=== PATIENT | female | born 1970 | race African-American/Black ===

== ENCOUNTER → 2019-06-27 | Outpatient (CLI) | payer OTHER ==
--- NOTE | 2019-06-27 12:36 | RAD ---
EXAM: Lumbar spine, 3 views. HISTORY: Pain. COMPARISON: None. FINDINGS: 3 views of the lumbar spine are obtained. There is no listhesis. The vertebral beard are normal in height and the disc spaces are preserved. There is facet arthropathy at the lumbosacral junction. IMPRESSION: Degenerative change at the lumbosacral junction. Electronically signed by: Lakisha Hinojosa MD (06/27/2019 12:34 PM) [facility]
== END | disposition home or self-care (01) ==
LOC: PMG 11:21
PROVIDERS: ATTEND Registered Nurse
DX: M47.817 Spondylosis without myelopathy or radiculopathy, lumbosacral region (principal)
CPT/HCPCS: 72100

== ENCOUNTER 2019-12-08 10:31 | Emergency (ER) | payer OTHER ==
[~2019-12-08] VITALS: Ht 167.6 cm; Wt 81.1 kg
[2019-12-08 10:40] VITALS: BP 134/91
--- NOTE | 2019-12-08 11:07 | PHYS DOC ---
Past History Past Medical History: AL Past Surgical History: Other Additional Past Surgical Histo: cardiac stent Additional Smoking Information: 1/4 pack/day Alcohol Use: None General Adult EDM: Chief Complaint: BACK PAIN OR INJURY HPI: HPI: 49 yo female presents with diffuse back pain after myelogram. She had a myelogram yesterday as follow-up from previous chronic back pain injury. They are referring her to pain management. She is not a surgical candidate. The patient has had increased pain since the test. She denies any new trauma or falls. She has no other complaints at this time. Review of Systems: Review of Systems: Constitutional: Denies fever or chills Eyes: Denies change in visual acuity HENT: Denies nasal congestion or sore throat Respiratory: Denies cough or shortness of breath Cardiovascular: Denies chest pain or edema GI: Denies abdominal pain, nausea, vomiting, bloody stools or diarrhea : Denies dysuria Musculoskeletal: Back pain Integument: Denies rash Neurologic: Denies headache, focal weakness or sensory changes Endocrine: Denies polyuria or polydipsia Lymphatic: Denies swollen glands Psychiatric: Denies depression or anxiety Heart Score: Risk Factors: Risk Factors: DM, Current or recent (<one month) smoker, HTN, HLP, family history of CAD, obesity. Risk Scores: Score 0 - 3: 2.5% MACE over next 6 weeks - Discharge Home Score 4 - 6: 20.3% MACE over next 6 weeks - Admit for Clinical Observation Score 7 - 10: 72.7% MACE over next 6 weeks - Early Invasive Strategies Allergies: Allergies: Allergies Coded Allergies Type Severity Reaction Last Updated Verified No Known Drug Allergies 12/08/19 No Physical Exam: PE: Constitutional: Well developed, well nourished, no acute distress, non-toxic appearance. [] HENT: Normocephalic, atraumatic, bilateral external ears normal, oropharynx moist, no oral exudates, nose normal. [] Eyes: PERRLA, EOMI, conjunctiva normal, no discharge. [] Neck: Normal range of motion, no tenderness, supple, no stridor. [] Cardiovascular:Heart rate regular rhythm, no murmur [] Lungs & Thorax: Bilateral breath sounds clear to auscultation [] Abdomen: Bowel sounds normal, soft, no tenderness, no masses, no pulsatile masses. [] Skin: Warm, dry, no erythema, no rash. [] Back: Thoracic paraspinal muscle spasm and tenderness. [] Extremities: No tenderness, no cyanosis, no clubbing, ROM intact, no edema. [] Neurologic: Alert and oriented X 3, normal motor function, normal sensory function, no focal deficits noted. [] Psychologic: Affect normal, judgement normal, mood normal. [] Current Patient Data: Vital Signs: Vital Signs Date Time Temp Pulse Resp B/P (MAP) Pulse Ox O2 Delivery O2 Flow Rate FiO2 12/08/19 10:40 98.3 80 20 134/91 (105) 99 Room Air EKG: EKG: [] Radiology/Procedures: Radiology/Procedures: [] Course & Med Decision Making: Course & Med Decision Making Pertinent Labs and Imaging studies reviewed. (See chart for details) Unsure what the patient's pain is due to the test yesterday or just an exacerbation of her chronic pain. She has not had any narcotic pain medication since July. I will give her a short course of [place] as well as Flexeril to get her through the next couple days to see if it calms down. She will follow- up with pain management on Tuesday. [] Gee Disclaimer: Gee Disclaimer: This electronic medical record was generated, in whole or in part, using a voice recognition dictation system. Departure Departure: Impression: Primary Impression: Back pain Qualified Codes: M54.6 - Pain in thoracic spine Disposition: HOME/RESIDENCE PRIOR TO ADM Condition: STABLE Referrals: [facility] (PCP) Patient Instructions: Back Pain, Adult, [id number] Scripts Hydrocodone Bit/Acetaminophen (NORCO 5-325 TABLET) 1 Each Tablet 1 TAB PO PRN Q6HRS PRN for PAIN, #14 TAB 0 Refills Prov: JESSICA ELY DO 12/08/19 Cyclobenzaprine Hcl (CYCLOBENZAPRINE HCL) 10 Mg Tablet 1 TAB PO TID PRN for MUSCLE SPASMS, #30 TAB Prov: JESSICA ELY DO 12/08/19 Justification of Admission: Justification of Admission: Justification of Admission Dx: N/A JESSICA ELY DO Dec 08, 2019 11:07
[2019-12-08] MEDS ORDERED: CYCL-331 PO (11:14)
[2019-12-08] MEDS ORDERED: HYDR-3165 PO (11:14)
== END 2019-12-08 11:22 | disposition home or self-care (01) ==
LOC: ER 10:31
DX: M54.6 Pain in thoracic spine (principal); G89.29 Other chronic pain; I25.2 Old myocardial infarction; F17.200 Nicotine dependence, unspecified, uncomplicated
CPT/HCPCS: 99283

== ENCOUNTER 2020-01-12 20:53 | Emergency (ER) | payer OTHER ==
[~2020-01-12] VITALS: Ht 167.6 cm; Wt 85.3 kg
[~2020-01-12 20:53] MED LIST: CYCL-331 PO; HYDR-3165 PO
[2020-01-12] MEDS ORDERED: DEXAMETHASONE SOD PHOS 10 MG/ML VIAL. ONE (21:52)
[2020-01-12] MEDS ORDERED: KETOROLAC 30 MG/ML VIAL. ONE (21:53)
[2020-01-12] MEDS ORDERED: GABA-586 PO (21:56)
[2020-01-12] MEDS ORDERED: PRED50TA PO (21:56)
[2020-01-12] MEDS ORDERED: METH-38 PO (21:56)
--- NOTE | 2020-01-12 21:56 | PHYS DOC ---
Past History Past Medical History: [place], Other Additional Past Medical Histor: CHRONIC RIGHT HIP Past Surgical History: Other Additional Past Surgical Histo: cardiac stent Additional Smoking Information: 1/4 PACK Alcohol Use: None Adult General Chief Complaint Chief Complaint: BACK PAIN OR INJURY HPI HPI Patient is a 49 year old female who presents with lower back pain that radiates into her right hip and anterior thigh. She has had this for the last year after a injury at work. She is seeing a workman comp doctor for it previously but has not followed up recently for this. She has been taking [id number] medication without any relief. She continues to have significant amounts of pain. She gets intermittent numbness in her leg but does not have any numbness at this time. She is walking normally. She has not had any bowel or bladder incontinence. Review of Systems Review of Systems General: Denies fever, chills, sweats, fatigue Eyes: Denies drainage, blurred vision, eye redness HENT: Denies rhinorrhea, sore throat, earache Respiratory: Denies cough, shortness of breath, wheezing Cardiac: Denies edema, palpitations, chest pain GI: Denies abdominal pain, Nausea, vomiting MSK: Denies, neck pain reports back pain Skin: Denies rash, jaundice Neuro: Denies headache, dizziness Psychiatric: Denies SI/HI Allergies Allergies Allergies Coded Allergies Type Severity Reaction Last Updated Verified No Known Drug Allergies 12/08/19 No Physical Exam Physical Exam General: Awake, alert, NAD. Well Nourished, well hydrated. Cooperative HEENT: Atraumatic, EOMI, PERRL, airway patent, moist oral mucosa Neck: Supple, trachea midline Respiratory: CTA bilaterally, normal effort, no wheezing/crackles CV: RRR, no murmur, cap refill <2 GI: Soft, nondistended, nontender, no masses MSK: No obvious deformities Skin: Warm, dry, intact Neuro: A&O x3, speech NL, sensory and motor grossly intact, no focal deficits, normal gait Psych: Normal affect, normal mood, not suicidal or homicidal Current Patient Data Vital Signs Vital Signs Date Time Temp Pulse Resp B/P (MAP) Pulse Ox O2 Delivery O2 Flow Rate FiO2 01/12/20 20:55 98.3 93 20 140/89 (106) 96 Room Air EKG EKG [] Radiology/Procedures Radiology/Procedures [] Course & Med Decision Making Course & Med Decision Making Pertinent Labs and Imaging studies reviewed. (See chart for details) Patient is a 49-year-old female who presents to the Emergency room with non- traumatic back pain. Patient denies bowel incontinence, urinary retention, fever, numbness, weakness. On exam, patient does not have a neurologic deficits, saddle anesthesia, gait difficulty, signs of trauma, or wounds near area of pain. Patient does not have a history of cancer or prolonged steroid use. At this time, patient does not have any signs, symptoms, or risk factors of emergent causes of back pain making cauda equina, spinal abscess, transverse myelitis, fractures, and other causes of emergent back pain highly unlikely. At this time, patient does not need any further work up for their back pain and will be treated symptomatically. Patient's test results and vitals while in the ED were fully reviewed and discussed with the patient. Patient is stable and at this time does not need admission to the hospital. We have discussed strict return precautions and the importance of following up with their Primary Care Physician. Patient stated understanding and was given an opportunity to ask any questions. Patient is in agreement with plan. Dragon Disclaimer Dragon Disclaimer This electronic medical record was generated, in whole or in part, using a voice recognition dictation system. Departure Departure: Impression: Primary Impression: Sciatica Disposition: 01 HOME/RESIDENCE PRIOR TO ADM Condition: STABLE Referrals: EDDA JACKSON MD (PCP) Patient Instructions: Sciatica Scripts Prednisone (PREDNISONE) 50 Mg Tablet 1 TAB PO DAILY for inflammation, #5 TAB You received this medication in the emergency room today. You will starting your next dose tomorrow. Prov: ERICK STEVENS MD 01/12/20 Gabapentin (GABAPENTIN ) 300 Mg Capsule 300 MG PO TID for NEUROGENIC PAIN for 20 Days, #60 CAP Prov: ERICK STEVENS MD 01/12/20 Methocarbamol (ROBAXIN-750) 750 Mg Tablet 1 TAB PO TID PRN for BREAKTHROUGH PAIN for 30 Days, #45 TAB 0 Refills Prov: ERICK STEVENS MD 01/12/20 Justification of Admission: Justification of Admission: Justification of Admission Dx: No ERICK STEVENS MD Jan 12, 2020 21:56
[2020-01-12] MEDS ORDERED: diazePAM 5 MG TABLET. PO ONE (22:00)
[2020-01-12] MEDS ORDERED: KETOROLAC 30 MG/ML VIAL. IM ONE (22:00)
[2020-01-12] MEDS ORDERED: DEXAMETHASONE SOD PHOS 10 MG/ML VIAL. PO ONE (22:00)
[2020-01-12 22:03] VITALS: BP 158/94
== END 2020-01-12 22:15 | disposition home or self-care (01) ==
LOC: ER 20:53
DX: M54.41 Lumbago with sciatica, right side (principal); I25.2 Old myocardial infarction; F17.200 Nicotine dependence, unspecified, uncomplicated
CPT/HCPCS: 96372; 99283; J1100; J1885

== ENCOUNTER 2020-03-12 22:00 | Emergency (ER) | payer OTHER ==
[~2020-03-12] VITALS: Ht 167.6 cm; Wt 85.3 kg
[~2020-03-12 22:00] MED LIST changes: +GABA-586 PO; +METH-38 PO; +PRED50TA PO
--- NOTE | 2020-03-12 22:45 | PHYS DOC ---
Past History Past Medical History: [place], Other Additional Past Medical Histor: CHRONIC RIGHT HIP Past Surgical History: Other Additional Past Surgical Histo: cardiac stent Alcohol Use: None General Adult EDM: Chief Complaint: BACK PAIN OR INJURY HPI: HPI: Tammy Joy presents presents with chronic lumbar back pain. 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 She is currently in process of getting Workmen's Comp., but is a slow process and she is unable to find relief. He affirms having an MRI that showed "destruction" patient is unable to further specify. She is currently attempting to contact pain management clinic and affirms taking an unknown pain medication in the past. She states that at work today she did not do any excessive lifting, but when she got home from work had excessive right sided lumbar back pain that is described as sharp and radiates into her right lower quadrant. She also experiences numbness and tingling traveling down her right leg. She denies all other complaints including fever and incontinence. She denies a history of IV drug abuse and cancer. Patient affirms taking 2 tablets of Tylenol approximately 6-1/2 hours prior to arrival. Review of Systems: Review of Systems: Constitutional: Denies fever or chills Eyes: Denies redness or eye pain HENT: Denies nasal congestion or sore throat Respiratory: Denies cough or shortness of breath Cardiovascular: Denies chest pain or palpitations GI: Denies abdominal pain, nausea, or vomiting : Denies dysuria or hematuria Musculoskeletal: Affirms back pain Integument: Denies rash or skin lesions Neurologic: Denies headache, focal weakness or sensory changes Complete systems were reviewed and found to be within normal limits, except as documented in this note. Allergies: Allergies: Allergies Coded Allergies Type Severity Reaction Last Updated Verified No Known Drug Allergies 12/08/19 No Physical Exam: PE: Constitutional: Well developed, well nourished, no acute distress, non-toxic appearance HENT: Normocephalic, atraumatic Eyes: PERRL, EOMI, conjunctiva normal, no discharge Neck: Normal range of motion, no tenderness, supple Lungs & Thorax: No respiratory distress, equal chest rise and fall Abdomen: Soft, no tenderness Skin: Warm, dry, no erythema, no rash Back: Minimal midline tenderness from the range of T12-L4, mild right-sided tenderness to palpation in the same area Extremities: No tenderness, ROM intact, no edema, sensation intact in bilateral lower extremities, 5/5 muscle strength in lower extremities, abnormal gait secondary to pain Neurologic: Alert and oriented X 3, normal motor function, normal sensory function, no focal deficits noted Psychologic: Affect normal, judgment normal Current Patient Data: Vital Signs: Vital Signs Date Time Temp Pulse Resp B/P (MAP) Pulse Ox O2 Delivery O2 Flow Rate FiO2 03/12/20 22:00 98.4 82 18 144/88 (106) 97 Room Air Course & Med Decision Making: Course & Med Decision Making Patient presented with lower back pain as described above. Given the patient's description of the pain and her past work-up, suspect herniated disc with sciatica. Since this patient's complaint is chronic, she was advised that further work-up cannot be done emergency department at this moment. She will be given symptomatic pain control with hydrocodone, ketorolac, Norflex, and prednisone. She will be given a prescription for hydrocodone and prednisone, and was given instructions to treat any further symptoms with [id number] medications. Dragon Disclaimer: [employer] Disclaimer: This electronic medical record was generated, in whole or in part, using a voice recognition dictation system. Departure Departure: Impression: Primary Impression: Acute exacerbation of chronic low back pain Disposition: 01 HOME/RESIDENCE PRIOR TO ADM Condition: STABLE Referrals: EDDA JACKSON MD (PCP) Patient Instructions: Chronic Back Pain, Sciatica with Rehab-SportsMed, Work- Related Injury-Brief Additional Instructions: Please follow closely with workman's comp. If you are unable to follow with workman's comp, please follow with operating systems specialist- Dr. Kike Diamond ([facility] Address: [address] [place] [address], [place] [address] Scripts Lidocaine (Lidocaine) 1 Each Adh..patch 1 EACH TP Q12HR PRN for PAIN, #10 PATCH Maintain for 12 hours to area of discomfort then remove and leave off for next 12 hours before replacing new patch. Prov: ALFREDO JAUREGUI DO 03/12/20 Hydrocodone Bit/Acetaminophen (NORCO 5-325 TABLET) 1 Each Tablet 0.5-1 TAB PO Q6HRS PRN for PAIN, #10 TAB Prov: ALFREDO JAUREGUI DO 03/12/20 Orphenadrine Citrate (ORPHENADRINE CITRATE) 100 Mg Tablet.er 1 TAB PO BID PRN for MUSCLE PAIN, #14 TAB 0 Refills Prov: ALFREDO JAUREGUI DO 03/12/20 Prednisone (PREDNISONE) 20 Mg Tablet 2 TAB PO DAILY for Back pain, #8 TAB Start this medication tomorrow, 03/13/2020 Prov: ALFREDO JAUREGUI DO 03/12/20 Justification of Admission: Justification of Admission: Justification of Admission Dx: N/A ALFREDO JAUREGUI DO Mar 12, 2020 22:45
[2020-03-12] MEDS ORDERED: HYDR-3165 PO (22:50)
[2020-03-12] MEDS ORDERED: LIDO1ADH63 TP (22:50)
[2020-03-12] MEDS ORDERED: ORPH-16 PO (22:50)
[2020-03-12] MEDS ORDERED: PRED20TA PO (22:50)
[2020-03-12] MEDS ORDERED: HYDROcodone/APAP 5/325MG 1 TAB TABLET PO ONE (23:00)
[2020-03-12] MEDS ORDERED: ORPHENADRINE CITRATE 60 MG/2 ML VIAL. IM ONE (23:00)
[2020-03-12] MEDS ORDERED: DEXAMETHASONE 4 MG TABLET PO ONE (23:00)
[2020-03-12] MEDS ORDERED: KETOROLAC 30 MG/ML VIAL. IM ONE (23:00)
== END 2020-03-12 23:10 | disposition home or self-care (01) ==
LOC: ER 22:00
DX: G89.29 Other chronic pain (principal); M54.5 Low back pain; R20.0 Anesthesia of skin; I25.2 Old myocardial infarction
CPT/HCPCS: 96372; 99284; J1885; J2360; J8540

== ENCOUNTER 2020-04-24 15:38 | Emergency (ER) | payer OTHER ==
[~2020-04-24] VITALS: Ht 165.1 cm; Wt 84.7 kg
[~2020-04-24 15:38] MED LIST changes: +LIDO1ADH63 TP; +ORPH-16 PO; +PRED20TA PO
--- NOTE | 2020-04-24 15:50 | PHYS DOC ---
Past History Past Medical History: [place], Other Additional Past Medical Histor: CHRONIC RIGHT HIP Past Surgical History: Other Additional Past Surgical Histo: cardiac stent Smoking: Cigarettes Alcohol Use: None Drug Use: None General Adult EDM: Chief Complaint: Back pain HPI: HPI: Patient is a 49 year old Female who presents with back pain. Pain has been ongoing. Rated at 7/10, sharp shooting pain that is constant. Pain was tolerated with tylenol and hydrocodone. Patient was prescribed hydrocodone during last visit at ED in 03/09, however ran out of medication and requesting refill for symptom relief. Patient reports pain is in lower back on Right side with radiation down her Right leg to her foot. Patient reports numbness and tingling sensation in her R leg as well. Patient describes intermittent swelling of her hands and feet with tenderness. Patient denies any stool or urinary incontinence or point tenderness in her lower back. Patient was brought by her mother and not concerned for . Patient denies any sick or COVID contacts. Review of Systems: Review of Systems: Constitutional: Denies fever or chills Eyes: Denies redness or eye pain HENT: Denies nasal congestion or sore throat Respiratory: Denies cough or shortness of breath Cardiovascular: Denies chest pain or palpitations GI: Denies abdominal pain, nausea, or vomiting : Denies dysuria or hematuria or incontinence Musculoskeletal: Admits back pain or joint pain Integument: Denies rash or skin lesions Neurologic: Admits numbness and tingling in R lower extremity. Denies headache, focal weakness Complete systems were reviewed and found to be within normal limits, except as documented in this note. Allergies: Allergies: Allergies Coded Allergies Type Severity Reaction Last Updated Verified No Known Drug Allergies 12/08/19 No Physical Exam: PE: Constitutional: Well developed, well nourished, no acute distress, non-toxic appearance HENT: Normocephalic, atraumatic Eyes: PERRL, EOMI, conjunctiva normal, no discharge Neck: Normal range of motion, no tenderness, supple Lungs & Thorax: No respiratory distress, equal chest rise and fall Abdomen: Soft, no tenderness Skin: Warm, dry, no erythema, no rash Back: Generalized lower back tenderness, no CVA tenderness, positive straight leg test on R Extremities: No tenderness, ROM intact, no edema Neurologic: Alert and oriented X 3, normal motor function, normal sensory function, no focal deficits noted Psychologic: Affect normal, judgment normal Course & Med Decision Making: Course & Med Decision Making Patient is a 49yo female who presents with back pain. Patient reports running out of medications prescribed at ED in 03/09. PE was unremarkable for midline tenderness, step off or point tenderness. Patient was treated with ketorlac in the clinic with pain relief. Patient was prescribed hydrocodone and lidocaine patches for pain relief at home. Patient stable for discharge with outpatient follow-up with PCP/pain management. Pain management referral provided. Discussed findings and plan with patient, who acknowledges understanding and agreement. Dragon Disclaimer: Dragon Disclaimer: This electronic medical record was generated, in whole or in part, using a voice recognition dictation system. Departure Departure: Impression: Primary Impression: Acute exacerbation of chronic low back pain Additional Impression: Sciatica Qualified Codes: M54.31 - Sciatica, right side Disposition: 01 DC HOME SELF CARE/HOMELESS Condition: STABLE Referrals: EDDA JACKSON MD (PCP) Patient Instructions: Back Pain, Adult, [id number], Sciatica, [id number] Additional Instructions: Please follow up with your pain management doctor and/or PCP. Scripts Orphenadrine Citrate (ORPHENADRINE CITRATE) 100 Mg Tablet.er 1 TAB PO BID PRN for MUSCLE PAIN, #14 TAB 0 Refills Prov: ALFREDO JAUREGUI DO 04/24/20 Hydrocodone Bit/Acetaminophen (NORCO 5-325 TABLET) 1 Each Tablet 0.5-1 TAB PO Q6HRS PRN for PAIN, #10 TAB Prov: ALFREDO JAUREGUI DO 04/24/20 Lidocaine (Lidocaine PATCH ) 1 Each Adh..patch 1 EACH TP DAILY for FOR LOCAL PAIN, #30 PATCH REMOVE AFTER 12 HOURS Prov: ALFREDO JAUREGUI DO 04/24/20 ALFREDO JAUREGUI DO Apr 24, 2020 15:50
[2020-04-24] MEDS ORDERED: HYDR-3165 PO (16:11)
[2020-04-24] MEDS ORDERED: LIDO700A21 TP (16:11)
[2020-04-24] MEDS ORDERED: ORPH-16 PO (16:11)
[2020-04-24] MEDS ORDERED: KETOROLAC 30 MG/ML VIAL. IM ONE (16:15)
[2020-04-24] MEDS ORDERED: DEXAMETHASONE 4 MG TABLET PO ONE (16:15)
[2020-04-24 16:23] VITALS: BP 141/98
== END 2020-04-24 16:23 | disposition home or self-care (01) ==
LOC: ER 15:38
DX: G89.29 Other chronic pain (principal); M54.41 Lumbago with sciatica, right side; R20.2 Paresthesia of skin; R60.0 Localized edema; I25.2 Old myocardial infarction; F17.210 Nicotine dependence, cigarettes, uncomplicated; Z98.890 Other specified postprocedural states
CPT/HCPCS: 96372; 99283; J1885; J8540

== ENCOUNTER 2020-07-05 21:08 | Emergency (ER) | payer OTHER ==
[~2020-07-05] VITALS: Ht 165.1 cm; Wt 83.0 kg
[~2020-07-05 21:08] MED LIST changes: +LIDO700A21 TP
--- NOTE | 2020-07-05 21:10 | PHYS DOC ---
Past History Past Medical History: CAD, OR, Other Additional Past Medical Histor: CHRONIC RIGHT HIP Past Surgical History: Other Additional Past Surgical Histo: cardiac stent Smoking: Cigarettes Alcohol Use: None Drug Use: None General Adult HPI: HPI: ".. It this same old pain.. it is just worse tonight.. I was sitting around playing [employer] with my mom.. and the pain got so bad I could not stand it.. I just need a shot.. I had CT.. and MRI.. I got a workman comp.case with [employer] were I work.. over this.." Patient is a 49 year old female who presents with above hx and complaints Rt. hip and back pain. Pt. hx of prior evaluation of this pain, which has sciatica like presentation. Pain radiates low back, down through Rt. hib and into leg down path of sciatic nerve. Pt. seen 04/24/20 for similar presentation in the ED. Pt. follows with Dr. Edda Jackson. Patient on sotalol for work comp reference her initial injury lifting a box in 1 year ago. Patient works at [employer]. No history of new injury. No history of fever or chills. No history of IV drug use. No history of problems with defecation or urination.. No history of problems with defecation or urination. Patient has been following with work comp. Has tried multiple modalities to help reduce her pain, lidocaine patches, hydrocodone, muscle relaxants, etc. Patient denies any history immunosuppression. No history of travel outside the [place] area. No significant ill contacts. Review of Systems: Review of Systems: Constitutional: Denies fever or chills Eyes: Denies change in visual acuity HENT: Denies nasal congestion or sore throat Respiratory: Denies cough or shortness of breath Cardiovascular: Denies chest pain or edema GI: Denies abdominal pain, nausea, vomiting, bloody stools or diarrhea : Denies dysuria Musculoskeletal: Complains of back pain Integument: Denies rash Neurologic: Denies headache, focal weakness or sensory changes. Complains of sciatica-right Endocrine: Denies polyuria or polydipsia Lymphatic: Denies swollen glands Psychiatric: Denies depression or anxiety Family History: Family History: Noncontributory to presentation Current Medications: Current Meds: See nursing for home meds Allergies: Allergies: Allergies Coded Allergies Type Severity Reaction Last Updated Verified No Known Drug Allergies 04/24/20 No Physical Exam: PE: Constitutional: Moderate acute distress, non-toxic appearance. [] HENT: Normocephalic, atraumatic, bilateral external ears normal, oropharynx moist, no oral exudates, nose normal. [] Eyes: PERRLA, EOMI, conjunctiva normal, no discharge. [] Neck: Normal range of motion, no tenderness, supple, no stridor. [] Cardiovascular:Heart rate regular rhythm, no murmur [] Lungs & Thorax: Bilateral breath sounds equal apex with scattered wheezes on auscultation [] Abdomen: Bowel sounds normal, soft, no tenderness, no masses, no pulsatile masses. Obese. Skin: Warm, dry, no erythema, no rash. [] Back: Lumbar sacral pair spinal muscle tenderness, no midline tenderness. No rash appreciated. Does seem to follow the sciatic root and branch of the sciatic nerve into right lower groin. No CVA tenderness. [] Extremities: No tenderness, no cyanosis, no clubbing, ROM intact, no edema. 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 Straight leg lift on Rt does exacerbate the sciatic pain. Neurologic: Alert and oriented X 3, normal motor function, normal sensory function, no focal deficits noted. [] Psychologic: Affect anxious, frustrated, judgement normal, mood normal. [] EKG: EKG: [] Radiology/Procedures: Radiology/Procedures: Declines x-rays and CT at this time states she has had these all completed and MRI at another location. [] Heart Score: Risk Factors: Risk Factors: DM, Current or recent (<one month) smoker, HTN, HLP, family history of CAD, obesity. Risk Scores: Score 0 - 3: 2.5% MACE over next 6 weeks - Discharge Home Score 4 - 6: 20.3% MACE over next 6 weeks - Admit for Clinical Observation Score 7 - 10: 72.7% MACE over next 6 weeks - Early Invasive Strategies Course & Med Decision Making: Course & Med Decision Making Pertinent Labs and Imaging studies reviewed. (See chart for details) Patient continue her follow-ups at [facility]. Patient continue her follow- ups with primary care. Patient take meds as previous directed. Ice packs as needed. For exacerbation of more pain may take Vicoprofen up to 4 times a day. Must follow-up. Patient to continue muscle relaxants, lidocaine patches,. Recommend follow-up with pain center. Recommend follow-up with neurosurgery. Return if any concerns. Advised patient chronic pain meds and narcotics must be filled through her primary care. Impression: 1. Acute on chronic back pain and sciatic pain 2. Tobacco use. 3. Hx. CADz. Stents and OR 4- 6 hrs yrs ago [] Dragon Disclaimer: Dragon Disclaimer: This electronic medical record was generated, in whole or in part, using a voice recognition dictation system. Departure Departure: Referrals: EDDA JACKSON MD (PCP) Scripts Hydrocodone/Ibuprofen (HYDROCODONE-IBUPROFEN 7.5-200 ) 1 Each Tablet 1 TAB PO PRN Q6HRS PRN for PAIN, #30 TAB 0 Refills Prov: BILLY POSADAS MD 07/05/20 Dragon Disclaimer This chart was dictated in whole or in part using Voice Recognition software in a busy, high-work load, and often noisy Emergency Department environment. It may contain unintended and wholly unrecognized errors or omissions. Dragon Disclaimer This chart was dictated in whole or in part using Voice Recognition software in a busy, high-work load, and often noisy Emergency Department environment. It may contain unintended and wholly unrecognized errors or omissions. Dragon Disclaimer This chart was dictated in whole or in part using Voice Recognition software in a busy, high-work load, and often noisy Emergency Department environment. It may contain unintended and wholly unrecognized errors or omissions. BILLY POSADAS MD Jul 05, 2020 21:10
[2020-07-05] MEDS ORDERED: ASPI81TA59 PO (21:37)
[2020-07-05] MEDS ORDERED: metoprolol (21:37)
[2020-07-05] MEDS ORDERED: plavix (21:37)
[2020-07-05] MEDS ORDERED: ACET325T21 PO (21:37)
[2020-07-05] MEDS ORDERED: statin (21:37)
[2020-07-05] MEDS ORDERED: HYDR-1179 PO (21:40)
[2020-07-05] MEDS ORDERED: MORPHINE SULFATE 10 MG/ML SYRINGE. SQ ONE (22:00)
[2020-07-05] MEDS ORDERED: methylPREDNISolone ACETATE 40 MG/ML VIAL. IM ONE (22:00)
[2020-07-05] MEDS ORDERED: KETOROLAC 60 MG/2 ML VIAL. IM ONE (22:00)
[2020-07-05] MEDS ORDERED: ORPHENADRINE CITRATE 60 MG/2 ML VIAL. IM ONE (22:00)
== END 2020-07-05 22:40 | disposition home or self-care (01) ==
LOC: ER 21:08
DX: G89.29 Other chronic pain (principal); M54.41 Lumbago with sciatica, right side; I25.10 Atherosclerotic heart disease of native coronary artery without angina pectoris; I25.2 Old myocardial infarction; F17.210 Nicotine dependence, cigarettes, uncomplicated
CPT/HCPCS: 96372; 99284; J1030; J1885; J2270; J2360

== ENCOUNTER 2021-11-14 14:02 | Emergency (ER) | payer OTHER ==
[~2021-11-14] VITALS: Ht 165.1 cm; Wt 77.7 kg
[~2021-11-14 14:02] MED LIST changes: +ACET325T21 PO; +ASPI81TA59 PO; -CYCL-331 PO; +CYCL10TA19 PO; +HYDR-1179 PO; +metoprolol; +plavix; +statin
--- NOTE | 2021-11-14 14:43 | PHYS DOC ---
Past History Past Medical History: CAD, [place], Other Additional Past Medical Histor: CHRONIC RIGHT HIP Past Surgical History: Other Additional Past Surgical Histo: cardiac stent Smoking: Cigarettes Alcohol Use: None Drug Use: None General Adult EDM: Chief Complaint: ABDOMINAL PAIN HPI: HPI: Patient is a 51-year-old female coming in for epigastric pain since last night. Patient states it started as she had eaten a Doritos chip and did not thoroughly chew it. Patient felt it go down but feels like its "stuck" in her epigastric area. Patient has been able to eat since then it does not change the pain. Patient had an episode small amount of clear emesis this morning about 6 hours prior to arrival, has since been able to eat cereal. Patient states she took a nitro and a Tylenol without improvement. Patient denies any history of gastritis, ulcers or reflux. Review of Systems: Review of Systems: All other systems within normal limits except for as noted in the HPI Current Medications: Current Meds: Current Medications Medications (Trade) Dose Ordered Sig/Marya Start Time Stop Time Status Last Admin Dose Admin Fentanyl Citrate (Fentanyl 2ml Vial) 50 mcg 1X ONCE 11/14/21 14:45 11/14/21 14:46 UNV Ondansetron HCl (Zofran) 4 mg 1X ONCE 11/14/21 14:45 11/14/21 14:46 UNV Allergies: Allergies: Allergies Coded Allergies Type Severity Reaction Last Updated Verified No Known Drug Allergies 07/05/20 No Physical Exam: PE: Constitutional: Well developed, well nourished, no acute distress, non-toxic appearance. [] HENT: Normocephalic, atraumatic, bilateral external ears normal, nose normal. [] Eyes: PERRLA, conjunctiva normal, no discharge. [] Neck: No rigidity, supple, no stridor. [] Cardiovascular: Regular rate and rhythm, brisk cap refill [] Lungs & Thorax: Non labored symmetric respirations, no tachypnea or respiratory distress [] Abdomen: Soft, nondistended, tenderness in right upper quadrant and epigastric area. Skin: Warm, dry, no erythema, no rash. [] Back: Unremarkable Extremities: No deformities, range of motion grossly intact, no lower extremity edema [] Neurologic: Alert and oriented X 3, no focal deficits noted. [] Psychologic: Affect normal, judgement normal, mood normal. [] EKG: EKG: Sinus rhythm, heart rate 48, normal axis, no STEMI, no ectopy, normal intervals. [] Radiology/Procedures: Radiology/Procedures: [address] [address] IMAGING REPORT Signed PATIENT: SUMAN NOBLES ACCOUNT: [id number] : 1970 LOCATION: ER AGE: 51 SEX: F EXAM STATUS: REG ER ORD. PHYSICIAN: KAL PATEL MD REASON: epigastric pain PROCEDURE: CT ABDOMEN PELVIS WO CONTRAST CT ABDOMEN+PELVIS WO History: Reason: epigastric pain / Spl. Instructions: / History: Technique: Noncontrast examination of the abdomen and pelvis. Coronal and sagit lyndon reconstructions were performed. Exposure: One or more of the following individualized dose reduction techniques were utilized for this examination: 1. Automated exposure control 2. Adjustment of the mA and/or kV according to patient size 3. Use of iterative reconstruction technique. Comparison: None Findings: Lower chest: Mild bibasilar linear atelectasis. Abdomen and pelvis: The liver, spleen, adrenal glands, pancreas and gallbladder have unremarkable noncontrast appearance. No biliary ductal dilatation. No renal calculus. No hydronephrosis. No ureteral or urinary bladder calculus. Mild colonic diverticulosis. Normal appendix. No evidence of bowel obstruction. No pathologic lymphadenopathy. No ascites. Mild atheromatous plaque throughout the nonaneurysmal abdominal aorta and branch vessels. Bones: Multilevel lumbar spondylosis most prominent L5-S1. Impression: 1. No acute abdominal or pelvic pathology. Electronically signed by: Sergio Good DO (11/14/2021 3:44 PM) [facility] DICTATED AND SIGNED BY: SERGIO GOOD DO DATE: 11/14/21 1536 CC: KAL PATEL MD; EDDA JACKSON MD ~ [] Heart Score: C/O Chest Pain: No Risk Factors: Risk Factors: DM, Current or recent (<one month) smoker, HTN, HLP, family history of CAD, obesity. Risk Scores: Score 0 - 3: 2.5% MACE over next 6 weeks - Discharge Home Score 4 - 6: 20.3% MACE over next 6 weeks - Admit for Clinical Observation Score 7 - 10: 72.7% MACE over next 6 weeks - Early Invasive Strategies Course & Med Decision Making: Course & Med Decision Making Pertinent Labs and Imaging studies reviewed. (See chart for details) Evaluation unremarkable, pain relieved with GI cocktail. [] Dragon Disclaimer: Dragon Disclaimer: This electronic medical record was generated, in whole or in part, using a voice recognition dictation system. Departure Departure: Impression: Primary Impression: Epigastric abdominal pain Disposition: HOME / SELF CARE / HOMELESS Condition: STABLE Referrals: EDDA JACKSON MD (PCP) Patient Instructions: Gastritis, Adult Scripts Omeprazole (OMEPRAZOLE) 40 Mg Capsule.dr 1 CAP PO DAILY for antacid, #30 CAP 3 Refills Prov: KAL PATEL MD 11/14/21 Sucralfate (SUCRALFATE) 1 Gm Tablet 1 TAB PO TID for abdominal pain for 40 Days, #120 TAB 11 Refills Prov: KAL PATEL MD 11/14/21 KAL PATEL MD November 14, 2021 14:43
[2021-11-14] MEDS: ONDANSETRON PF 4 MG/2 ML VIAL. IVP ONE (14:55)
[2021-11-14 15:06] LABS: BASO # 0.1 x10^3/uL (0.0-0.2); BASO % 1 % (0-3); EOS # 0.2 x10^3/uL (0.0-0.7); EOS % 2 % (0-3); HEMATOCRIT 38.9 % (36.0-47.0); HEMOGLOBIN 12.9 g/dL (12.0-15.5); LYMPH # 4.1 x10^3/uL (1.0-4.8); LYMPH % 49 % (24-48); MEAN CORPUSCULAR HEMOGLOBIN 30 pg (25-35); MEAN CORPUSCULAR HGB CONC 33 g/dL (31-37); MEAN CORPUSCULAR VOLUME 92 fL (79-100); MONO # 0.6 x10^3/uL (0.0-1.1); MONO % 7 % (0-9); NEUT # 3.4 x10^3uL (1.8-7.7); NEUT % 41 % (31-73); PLATELET COUNT 279 x10^3/uL (140-400); RED BLOOD COUNT 4.24 x10^6/uL (3.50-5.40); WHITE BLOOD COUNT 8.4 x10^3/uL (4.0-11.0)
--- NOTE | 2021-11-14 15:46 | RAD ---
CT ABDOMEN+PELVIS WO History: Reason: epigastric pain / Spl. Instructions: / History: Technique: Noncontrast examination of the abdomen and pelvis. Coronal and sagittal reconstructions we re performed. Exposure: One or more of the following individualized dose reduction techniques were utilized for thi s examination: 1. Automated exposure control 2. Adjustment of the mA and/or kV according to patient size 3. Use of iterative reconstruction technique. Comparison: None Findings: Lower chest: Mild bibasilar linear atelectasis. Abdomen and pelvis: The liver, spleen, adrenal glands, pancreas and gallbladder have unremarkable non contrast appearance. No biliary ductal dilatation. No renal calculus. No hydronephrosis. No ureteral or urinary bladder calculus. Mild colonic diverticulosis. Normal appendix. No evidence of bowel obstruction. No pathologic lymphad enopathy. No ascites. Mild atheromatous plaque throughout the nonaneurysmal abdominal aorta and branc h vessels. Bones: Multilevel lumbar spondylosis most prominent L5-S1. Impression: 1. No acute abdominal or pelvic pathology. Electronically signed by: Sergio Good DO (11/14/2021 3:44 PM) [facility]
[2021-11-14] MEDS: LIDO:MAALOX 1:1 20 ML SINGLE DOSE. PO ONE (15:59)
[2021-11-14 16:05] LABS: CALCIUM 9.2 mg/dL (8.5-10.1); CREATININE 0.6 mg/dL (0.6-1.0); POTASSIUM 4.1 mmol/L (3.5-5.1)
[2021-11-14 16:09] LABS: BACTERIA,URINE FEW /HPF (0-FEW); CLARITY,URINE CLEAR; COLOR,URINE YELLOW; GLUCOSE,URINE NEG (NEG); NITRITE,URINE NEG (NEG); RBC,URINE RARE /HPF (0-2); SQUAMOUS EPITHELIAL CELL,UR MOD /LPF; UROBILINOGEN,URINE 0.2 mg/dL (0.2 mg/dL); WBC,URINE OCC /HPF (0-4)
[2021-11-14 16:18] LABS: ALBUMIN 3.5 g/dL (3.4-5.0); TOTAL BILIRUBIN 0.3 mg/dL (0.2-1.0); TOTAL PROTEIN 7.1 g/dL (6.4-8.2)
[2021-11-14 16:42] VITALS: BP 137/86
[2021-11-14] MEDS ORDERED: OMEP40CA7 PO (17:04)
[2021-11-14] MEDS ORDERED: SUCR1TAB PO (17:04)
== END 2021-11-14 17:10 | disposition home or self-care (01) ==
LOC: ER 14:02
DX: R10.13 Epigastric pain (principal); R11.10 Vomiting, unspecified; I25.10 Atherosclerotic heart disease of native coronary artery without angina pectoris; I25.2 Old myocardial infarction; F17.210 Nicotine dependence, cigarettes, uncomplicated
CPT/HCPCS: 36415; 74176; 80053; 81001; 83690; 83880; 84484; 85025; 87086; 93005; 96374; 96375; 99285; J2405; J3010

== ENCOUNTER → 2021-11-15 | Emergency (ER) | payer OTHER ==
[2021-11-14 16:42] VITALS: BP 137/86
[~2021-11-15] MED LIST changes: +OMEP40CA7 PO; +SUCR1TAB PO
== END | disposition left against medical advice (07) ==
LOC: ER 00:09
DX: R10.9 Unspecified abdominal pain (principal); Z53.21 Procedure and treatment not carried out due to patient leaving prior to being seen by health care provider